=== PATIENT | male | born 1950 | race Caucasian/White ===

== ENCOUNTER 2020-01-24 19:27 | Emergency (ER) | payer OTHER, MEDICARE ==
[2020-01-24 19:38] VITALS: BP 169/90; TEMP 98.1; BMI 25.0
[2020-01-24] MEDS ORDERED: DEXAMETHASONE LIQUID 0.5 MG/5 ML PO ONE (20:24)
[2020-01-24] MEDS ORDERED: DEXAMETHASONE SOD PHOSPHATE 10 MG/1 ML VIAL ONE (20:31)
[2020-01-24 21:05] VITALS: PULSE 103
== END 2020-01-24 21:05 | disposition home or self-care (01) ==
LOC: JER 19:27
DX: T78.40XA Allergy, unspecified, initial encounter (principal)
CPT/HCPCS: 99283-25